=== PATIENT | female | born 1970 | race Caucasian/White ===

== ENCOUNTER 2019-07-17 23:59 | Inpatient (IN) | payer BC ==
[~2019-07-17] VITALS: Ht 165.1 cm; Wt 107.9 kg
[~2019-07-17 23:59] MED LIST: LISI2.5T47
[2019-07-18 00:38] LABS: Basophils # (auto) 0.1 uL; Basophils % (auto) 0.8 % (0.0-2.0); Eosinophils # (auto) 0.3 uL; Eosinophils % (auto) 4.1 % (0.0-7.0); Hematocrit 42.8 % (36.0-46.0); Hemoglobin 14.1 g/dL (12.2-16.2); Lymphocytes # (auto) 2.6 uL; Lymphocytes % (auto) 32.1 % (10.0-50.0); Mean Corpuscular Hemoglobin 30.9 pg (28.0-32.0); Mean Corpuscular Hgb Conc. 32.9 g/dL (32.0-36.0); Mean Corpuscular Volume 93.8 fL (80.0-100.0); Monocytes # (auto) 1.1 uL; Monocytes % (auto) 13.9 % (0.0-12.0); Neutrophils % (auto) 49.1 % (37.0-80.0); Platelet Count (auto) 368 10^3/uL (140-450); Red Blood Cells 4.56 10^6/uL (4.0-5.20); Red Cell Distribution Width 13.3 % (11.8-14.3); White Blood Cell 8.2 10^3/uL (4.4-10.8)
[2019-07-18 00:52] LABS: INR 0.93 (0.9-1.15); Partial Thromboplastin Time 27.3 sec (23.64-32.05)
[2019-07-18 00:58] LABS: Alanine Aminotransferase 60 U/L (13-56); Albumin 3.5 g/dL (3.4-5.0); Anion Gap 8 (5-15); Aspartate Aminotransferase 31 U/L (15-37); BUN/Creatinine Ratio 24.3; Blood Urea Nitrogen 17 mg/dL (7-18); Calcium 10.1 mg/dL (8.5-10.1); Carbon Dioxide 24 mmol/L (21-32); Chloride 110 mmol/L (98-107); GFR African American 114 mL/min; GFR Non-African American 95 mL/min; Glucose 112 mg/dL (74-106); Potassium 4.2 mmol/L (3.5-5.1); Sodium 142 mmol/L (136-145)
[2019-07-18 01:03] LABS: Alkaline Phosphatase 155 U/L (45-117); Bilirubin, Total 0.3 mg/dL (0.2-1.0); Total Protein 7.1 g/dL (6.4-8.2)
[2019-07-18 01:34] LABS: Urine Amorphous Crystal FEW /hpf (None Seen); Urine Bacteria FEW /hpf (None Seen); Urine Blood Negative /uL (Negative); Urine WBC 1 /hpf (0 - 5)
[2019-07-18] MEDS ORDERED: LORazepam 0.5 MG TAB PO ONE (01:45)
[2019-07-18] MEDS ORDERED: TEMAZEPAM 15 MG CAP PO PRN (06:45)
[2019-07-18] MEDS ORDERED: MORPHINE SULF INJ 2 MG/ML SYRINGE 1ML IV PRN (06:45)
[2019-07-18] MEDS ORDERED: ONDANSETRON HCL 4 MG/2 ML VIAL IV PRN (06:45)
[2019-07-18] MEDS ORDERED: ACETAMINOPHEN 325 MG TAB PO PRN (06:45)
[2019-07-18] MEDS ORDERED: NITROGLYCERIN 0.4 MG SL TAB SL PRN (06:45)
[2019-07-18 08:20] LABS: Cholesterol 194 mg/dL (< 200)
[2019-07-18 08:23] LABS: HDL Cholesterol 43 mg/dL (40-59); LDL Cholesterol 119 mg/dL (< 100); Triglycerides 196 mg/dL (< 150)
--- NOTE | 2019-07-18 08:30 | NUR ---
PT ARRIVED ON FLOOR FROM E.R.. PT REPORTS NO PAIN AT THIS TIME. VITALS: 98.2, HR 65, 02 94, BP 120/77, RR 16. PT REPORTS NO CHEST PAIN OR SOB AT THIS TIME. PT ORIENTED TO UNIT AND CALL LIGHT. WILL CONTINUE TO MONITOR. Signed: 07/18/19 at 1225 by TONY GALAVIZ RN
[2019-07-18 09:00] VITALS: BP 123/83
[2019-07-18] MEDS: ASPirin 81 mg TAB PO SCH (10:49)
[2019-07-18] MEDS: FAMOTIDINE 20 MG TAB PO SCH ×2 (10:49→21:58)
--- NOTE | 2019-07-18 12:20 | NUR ---
DR VALERA SAW PATIENT. HE RECOMMENDS ASPIRIN BE DECREASED TO 81 MG AND WANTS STRESS TEST. MD ALSO REQUESTED EKG, NONE IN PT CHART. EKG DONE, READS NSR 62 BPM. EKG PLACED IN PATIENT CHART. CALLED PBX AND PAGED DR FREDERICK TO NOTIFY MD STRESS TEST IS NEEDED, AWAITING CALL BACK.
[2019-07-18 13:00] VITALS: BP 127/87
[2019-07-18] MEDS ORDERED: ADENOSINE 97 MG in GIVE UN-DILUTED 0 ML IV ONE (13:00)
[2019-07-18 16:43] VITALS: BP 121/80
--- NOTE | 2019-07-18 19:50 | NUR ---
PM NOTE INTRODUCED SELF TO PT AND FAMILY AT BEDSIDE PT SITTING IN CHAIR A&OX4, RESPIRATIONS ARE NORMAL AND NON-LABORED, NO SIGNS OF DISTRESS, NO SOB. NO NEW COMPLAINTS.PT DENIES ANY PAIN, N/V. PT IS AWARE OF PLAN OF CARE. WILL CONTINUE TO MONITOR. Signed: 07/18/19 at 2209 by TERESITA MOE <Co-Signature Required> Co-Signed: 07/18/19 at 2209 by Ngozi oFx RN
[2019-07-18] MEDS: ATORVASTATIN 20 MG TAB PO SCH (21:57)
[2019-07-18 22:00] VITALS: BP 126/71
[2019-07-19 05:26] VITALS: BP 123/67
[2019-07-19 07:18] LABS: BUN/Creatinine Ratio 23.4; Calcium 10.1 mg/dL (8.5-10.1); Potassium 4.3 mmol/L (3.5-5.1)
--- NOTE | 2019-07-19 07:50 | NUR ---
Opening Note Assumed care of patient, A & O x4, no s/s of distress at this time. Patient is sitting up at the bedside, family is at bedside. She had breakfast, states "I have no pain, when is the doctor coming? Am I going home today?" POC discussed. Bed is in low, locked position, call light within reach. Will continue to monitor Q1h and PRN.
[2019-07-19 09:00] VITALS: BP 134/78
[2019-07-19] MEDS: ASPirin 81 mg TAB PO SCH (10:58)
[2019-07-19] MEDS: FAMOTIDINE 20 MG TAB PO SCH ×2 (10:58→21:25)
--- NOTE | 2019-07-19 11:16 | NUR ---
Dr. Gordon at bedside. Awaiting stress test result to be read. Patient notified.
[2019-07-19 13:00] VITALS: BP 132/80
[2019-07-19 17:00] VITALS: BP 128/75
--- NOTE | 2019-07-19 19:25 | NUR ---
pm note pt sitting on side of bed visiting family. no signs of distress. bed in low position. call light with in reach. will continue to monitor.
[2019-07-19 21:00] VITALS: BP 129/77
[2019-07-19] MEDS: ATORVASTATIN 20 MG TAB PO SCH (21:25)
--- NOTE | 2019-07-20 08:00 | NUR ---
Opening Note Assumed care of patient, A & O x4, no s/s of distress at this time. Patient is comfortable at this time. Patient is asking "have the stress test results been read?" Will address this with the director of business continuity paediatrician. POC discussed. Bed is in low, locked position, call light within reach. Will continue to monitor Q1h and PRN.
--- NOTE | 2019-07-20 08:30 | NUR ---
Spoke to Dr. Ryan [address] monkey speech language pathology assistant Regarding Cardiolite stress test result that is pending, notified him that patient is being seen by Dr. Paulson, that the result of this test is the only test holding patient discharge, this RN asked him if he could read it, Dr. Ryan states "Dr. Vivas reads Sunday stress test results, call Dr. Vivas or Dr. Paulson." Will follow up with Dr. Gordon and Dr. Vivas.
[2019-07-20 08:57] VITALS: BP 136/85
--- NOTE | 2019-07-20 09:50 | NUR ---
Dr. Gordon at bedside. Dr. Gordon explained to the patient and the family that the stress test will be read tomorrow. Will continue to monitor patient Q1h and PRN.
--- NOTE | 2019-07-20 09:58 | NUR ---
Dr. Gordon Orders read back and verified regarding dose change for aspirin per Dr. Paulson recommendation.
[2019-07-20] MEDS: ASPirin 81 mg TAB PO SCH (11:10)
[2019-07-20] MEDS: FAMOTIDINE 20 MG TAB PO SCH ×2 (11:10→21:25)
[2019-07-20 13:00] VITALS: BP 132/85
--- NOTE | 2019-07-20 16:08 | NUR ---
Patient has been ambulating the hallways, no s/s of distress. Patient comfortable at this time.
[2019-07-20 16:33] VITALS: BP 118/76
--- NOTE | 2019-07-20 20:00 | NUR ---
Opening Shift Note Assumed care of patient, awake and alert. No S/S of distress/SOB or pain. Instructed on POC and to call for assist PRN, will continue to monitor for changes Q1hr and PRN.
[2019-07-20] MEDS: ATORVASTATIN 20 MG TAB PO SCH (21:28)
[2019-07-20 22:00] VITALS: BP 148/85
--- NOTE | 2019-07-20 23:29 | NUR ---
Refused temazepam, said the med. is too strong to her,
--- NOTE | 2019-07-21 07:08 | NUR ---
Report given to Scarlet Herrera patient is resting no distress.
--- NOTE | 2019-07-21 07:25 | NUR ---
OPENING NOTE Assumed care of patient from NOC RN. Patient awake and alert with no S/S of distress/SOB or pain. Instructed on POC and to call for assist PRN, verbalized understanding. Bed in lowest, locked position with side rails up x2 and call light within reach. Will continue to monitor for changes Q1hr and PRN.
[2019-07-21 09:00] VITALS: BP 114/65
[2019-07-21] MEDS: ASPirin 81 mg TAB PO SCH (09:59)
[2019-07-21] MEDS: FAMOTIDINE 20 MG TAB PO SCH (09:59)
--- NOTE | 2019-07-21 13:25 | NUR ---
DISCHARGE Discharge instructions given as ordered. Encouraged to follow up with PMD and Cardiology as instructed. All questions and concerns addressed. Patient verbalized understanding. Medication reconciliation form completed and copy given to patient. IV removed with catheter intact and pressure dressing applied. Telemetry unit returned to ICU. Patient ambulated to vehicle via wheelchair with all personal belongings, accompanied by family member. No distress noted at time of departure.
== END 2019-07-21 13:25 | disposition home or self-care (01) | DRG 303 ==
LOC: EDBD 23:59 → ER 07-18 00:01 → TELE 07-18 00:02 → TELE-WESTW 07-18 08:15
PROVIDERS: ADMIT Nurse Practitioner; ATTEND Internal Medicine
DX: I25.10 Atherosclerotic heart disease of native coronary artery without angina pectoris (principal); Z68.42 Body mass index [BMI] 45.0-49.9, adult; E66.01 Morbid (severe) obesity due to excess calories; I10 Essential (primary) hypertension; K76.0 Fatty (change of) liver, not elsewhere classified; Z82.49 Family history of ischemic heart disease and other diseases of the circulatory system; Z90.49 Acquired absence of other specified parts of digestive tract
CPT/HCPCS: 36415; 71045; 78452; 80048; 80053; 80061; 81001; 83880; 84443; 84484; 85025; 85379; 85610; 85730; 93005; 93017; 93306; G0378; J0153

== ENCOUNTER 2024-05-30 10:00 | Emergency (ER) | payer BC, OTHER ==
[~2024-05-30] VITALS: Ht 165.1 cm; Wt 118.0 kg
[2024-05-30 11:14] VITALS: BP 148/80; PULSE 70; RESP 16; TEMP 97.6; O2SAT 98
[2024-05-30] MEDS: ACETAMINOPHEN 325 MG TAB PO ONE (11:15)
[2024-05-30] MEDS: SUMAtriptan SUCCINATE 6 MG/0.5 ML VL SC ONE (11:16)
[2024-05-30 11:30] LABS: Alanine Aminotransferase 31 U/L (7-40); Albumin 4.5 g/dL (3.2-4.8); Alkaline Phosphatase 114 U/L (46-116); Anion Gap 3 (5-15); Aspartate Aminotransferase 14 U/L (13-40); Blood Urea Nitrogen 13 mg/dL (9-23); Calcium 10.8 mg/dL (8.7-10.4); Carbon Dioxide 27 mmol/L (20-30); Chloride 107 mmol/L (98-107); Glucose 119 mg/dL (74-106); Magnesium 1.8 mg/dL (1.6-2.6); Potassium 4.2 mmol/L (3.5-5.1); Sodium 137 mmol/L (136-145)
[2024-05-30 11:31] LABS: Bilirubin, Total 0.6 mg/dL (0.2-1.0); Total Protein 7.2 g/dL (5.7-8.2)
[2024-05-30 11:35] LABS: Basophils # (auto) 0 10 ^3/uL (0-0.2); Basophils % (auto) 0.3 % (0.0-2.0); Eosinophils # (auto) 0.3 10 ^3/uL (0-0.8); Eosinophils % (auto) 3.5 % (0.0-7.0); Hematocrit 44.5 % (36.0-46.0); Lymphocytes # (auto) 2.4 10 ^3/uL (0.4-5.4); Lymphocytes % (auto) 28.3 % (10.0-50.0); Mean Corpuscular Hemoglobin 31.2 pg (28.0-32.0); Mean Corpuscular Hgb Conc. 33.8 g/dL (32.0-36.0); Mean Corpuscular Volume 92.5 fL (80.0-100.0); Monocytes # (auto) 0.7 10 ^3/uL (0-1.3); Monocytes % (auto) 8.8 % (0.0-12.0); Neutrophils % (auto) 59.1 % (37.0-80.0); Nucleated Red Blood Cells % 0.1 %; Red Blood Cells 4.81 10^6/uL (4.0-5.20); Red Cell Distribution Width 13.5 % (11.8-14.3); White Blood Cell 8.5 10^3/uL (4.4-10.8)
[2024-05-30 12:21] LABS: INR 0.96 (0.9-1.15); Partial Thromboplastin Time 29.2 SEC (24.5-34.5); Prothrombin Time 10.2 sec (9.3-11.8)
== END 2024-05-30 13:30 | disposition home or self-care (01) ==
LOC: ER 10:00
DX: G43.909 Migraine, unspecified, not intractable, without status migrainosus (principal); E86.0 Dehydration; I10 Essential (primary) hypertension
CPT/HCPCS: 36415; 70450; 71045; 80053; 83735; 83880; 84484; 85025; 85610; 85730; 93005; 96372; 99285; J3030